=== PATIENT | female | born 1955 | race Caucasian/White ===

== ENCOUNTER 2016-10-06 06:14 | Inpatient (IN) ==
[2016-10-06 15:50] LABS: Adenovirus Not Detected (Not Detect); Bordetella Pertussis Not Detected (Not Detect); Chlamydophila pneumoniae Not Detected (Not Detect); Coronavirus 229E Not Detected (Not Detect); Coronavirus HKU1 Not Detected (Not Detect); Coronavirus NL63 Not Detected (Not Detect); Coronavirus OC43 Not Detected (Not Detect); Human Metapneumovirus Not Detected (Not Detect); Human Rhinovirus/Enterovirus Not Detected (Not Detect); Influenza A Subtype 2009 H1 Not Detected (Not Detect); Influenza A Untypeable Not Detected (Not Detect); Influenza B Not Detected (Not Detect); Mycoplasma pneumoniae Not Detected (Not Detect); Parainfluenza Virus 1 Not Detected (Not Detect); Parainfluenza Virus 2 Not Detected (Not Detect); Parainfluenza Virus 3 Not Detected (Not Detect); Parainfluenza Virus 4 Not Detected (Not Detect); Respiratory Syncytial Virus Not Detected (Not Detect)
[2016-10-07 05:27] LABS: Basophils # 0.1 K/mcL (0.0-0.2); Basophils % 0.5 %; Eosinophils # 0.2 K/mcL (0.0-0.6); Eosinophils % 1.5 %; Hematocrit 38.6 % (35.3-44.9); Hemoglobin 12.5 g/dL (11.5-15.4); Immature Granulocytes % 0.5 % (0-4); Lymphocytes # 1.7 K/mcL (0.6-4.6); Lymphocytes % 11.4 %; Mean Corpuscular HGB Conc 32.4 g/dL (31.6-35.5); Mean Corpuscular Volume 92.8 fL (83.0-100.0); Mean Platelet Volume 10.4 fL (9.4-12.4); Monocytes # 0.8 K/mcL (0.0-1.3); Monocytes % 5.6 %; Neutrophils # 12.1 K/mcL (1.6-8.9); Platelet Count 182 K/mcL (140-400); Red Blood Count 4.16 M/mcL (3.82-4.97); Red Cell Distribution Width 12.7 % (11.5-14.5); Segmented Neutrophils % 80.5 %
[2016-10-07 05:46] LABS: Alanine Aminotransferase 110 Units/L (0-55); Albumin/Globulin Ratio 0.9 (1.1-2.2); Alkaline Phosphatase 74 Units/L (38-126); Aspartate Amino Transferase 49 Units/L (5-34); BUN/Creatinine Ratio 11 (6-26); Bilirubin,Total 1.3 mg/dL (0.2-1.2); Blood Urea Nitrogen 8 mg/dL (7-20); Carbon Dioxide 20 mEq/L (19-29); Chloride 109 mEq/L (98-109); Chol/HDL Ratio 5.8 (0-4.9); Cholesterol 220 mg/dL (< 200); Globulin 3.4 g/dL (2.4-3.5); Glucose 135 mg/dL (70-99); HDL Cholesterol 38 mg/dL (40-59); LDL Cholesterol,Calculated 152 mg/dL (0-99); Magnesium 1.8 mg/dL (1.6-2.6); Osmolality,Calculated 284 (280-300); Phosphorous 2.3 mg/dL (2.3-4.7); Sodium 137 mEq/L (136-145); Total Protein 6.4 g/dL (6.0-8.3); Triglycerides 148 mg/dL (< 150); eGFR For African Americans > 60 (> 60); eGFR For Non-African Americans > 60 (> 60)
[2016-10-08 06:53] LABS: Basophils # 0.1 K/mcL (0.0-0.2); Basophils % 0.8 %; Eosinophils # 0.4 K/mcL (0.0-0.6); Eosinophils % 5.5 %; Hematocrit 35.5 % (35.3-44.9); Hemoglobin 11.9 g/dL (11.5-15.4); Immature Granulocytes % 1.3 % (0-4); Lymphocytes # 1.5 K/mcL (0.6-4.6); Lymphocytes % 19.3 %; Mean Corpuscular HGB Conc 33.5 g/dL (31.6-35.5); Mean Corpuscular Hemoglobin 30.6 pg (28.0-33.3); Mean Corpuscular Volume 91.3 fL (83.0-100.0); Mean Platelet Volume 10.8 fL (9.4-12.4); Monocytes # 0.4 K/mcL (0.0-1.3); Monocytes % 5.8 %; Neutrophils # 5.1 K/mcL (1.6-8.9); Platelet Count 187 K/mcL (140-400); Red Blood Count 3.89 M/mcL (3.82-4.97); Red Cell Distribution Width 12.7 % (11.5-14.5); Segmented Neutrophils % 67.3 %
[2016-10-08 07:12] LABS: Albumin 2.7 g/dL (3.5-5.0); Albumin/Globulin Ratio 0.7 (1.1-2.2); Bilirubin,Direct 0.3 mg/dL (0.0-0.5); Bilirubin,Indirect 0.2 mg/dL (0.0-1.2); Bilirubin,Total 0.5 mg/dL (0.2-1.2); Globulin 3.9 g/dL (2.4-3.5); Total Protein 6.6 g/dL (6.0-8.3)
[2016-10-08 08:15] VITALS: BP 144/89
== END 2016-10-08 11:18 | disposition home or self-care (01) | DRG 871 ==
LOC: 2NENU
PROVIDERS: ADMIT Internal Medicine; ATTEND Internal Medicine

== ENCOUNTER 2021-01-06 20:44 | Observation (INO) ==
[2021-01-07] MEDS ORDERED: D5% in Water 1,000 ML IVC PRN (02:01)
[2021-01-07] MEDS ORDERED: Perflutren Lipid Microsphere 1.3 ML in 0.9 % Sodium Chloride 8.7 ML IVP PRN (02:01)
[2021-01-07] MEDS ORDERED: Dextrose Gel 15 GM/37.5 ML TUBE PO PRN ×2 (02:01)
[2021-01-07] MEDS ORDERED: *HR* Dextrose 50 % in Water (Vial) 50 ML VIAL IVP PRN (02:01)
[2021-01-07] MEDS ORDERED: Ondansetron 4 MG/2 ML VIAL IVP PRN (02:04)
[2021-01-07] MEDS ORDERED: Naloxone 0.4 MG/ML INJ IVP PRN (02:04)
[2021-01-07] MEDS ORDERED: ALPRAZolam 0.25 MG TABLET PO PRN (02:09)
[2021-01-07] MEDS ORDERED: Morphine Sulfate 2 MG/ML SYRINGE IVP ONE (02:13)
[2021-01-07] MEDS ORDERED: Nitroglycerin 0.4 MG TAB.SUBL SL PRN (02:13)
[2021-01-07 02:57] LABS: Hematocrit 40.1 % (35.3-44.9); Hemoglobin 13.1 g/dL (11.5-15.4); Mean Corpuscular HGB Conc 32.7 g/dL (31.6-35.5); Mean Corpuscular Hemoglobin 30.1 pg (28.0-33.3); Mean Corpuscular Volume 92.2 fL (83.0-100.0); Mean Platelet Volume 10.6 fL (9.4-12.4); Platelet Count 209 K/mcL (140-400); Red Blood Count 4.35 M/mcL (3.82-4.97); Red Cell Distribution Width 11.7 % (11.5-14.5); White Blood Count 8.5 K/mcL (4.3-11.1)
[2021-01-07 03:11] LABS: Chol/HDL Ratio 6.6 (0-4.9); Magnesium 1.9 mg/dL (1.6-2.6)
[2021-01-07 03:12] LABS: BUN/Creatinine Ratio 15 (6-26); Blood Urea Nitrogen 13 mg/dL (8-23); Calcium 9.2 mg/dL (8.6-10.3); Carbon Dioxide 26 mEq/L (23-29); Chloride 104 mEq/L (98-107); Ethanol < 10 mg/dL (Less than 10); Glucose 126 mg/dL (70-105); Osmolality,Calculated 286 (280-300); Potassium 3.6 mEq/L (3.5-5.1); Sodium 137 mEq/L (136-145); Troponin I < 0.03 ng/mL (< 0.04); eGFR For African Americans > 60 (> 60); eGFR For Non-African Americans > 60 (> 60)
[2021-01-07 03:23] LABS: Thyroid Stimulating Hormone 4.528 mcIU/mL (0.340-5.600)
[2021-01-07 04:43] LABS: Estimated Average Glucose 154 mg/dl
[2021-01-07 05:13] LABS: Folate 16.7 ng/mL (3.0-16.0)
[2021-01-07] MEDS: *HR* Heparin 5,000 UNIT/ML VIAL SQ SCH ×3 (05:19→20:49)
[2021-01-07] MEDS ORDERED: Regadenoson 0.4 MG/5 ML SYRINGE IVP ONE (05:58)
[2021-01-07] MEDS ORDERED: Insulin LISPRO 300 UNITS/3 ML VIAL SUBQ SCH (06:00)
[2021-01-07] MEDS: Aspirin Enteric Coated 81 MG Tablet PO SCH (08:38)
[2021-01-07] MEDS: PARoxetine 10 MG TABLET PO SCH (08:38)
[2021-01-07] MEDS: Insulin LISPRO 300 UNITS/3 ML VIAL SUBQ SCH ×2 (11:28→17:06)
[2021-01-08] MEDS: *HR* Heparin 5,000 UNIT/ML VIAL SQ SCH (05:08)
[2021-01-08 06:58] LABS: Hematocrit 41.1 % (35.3-44.9); Hemoglobin 13.7 g/dL (11.5-15.4); Mean Corpuscular HGB Conc 33.3 g/dL (31.6-35.5); Mean Corpuscular Hemoglobin 30.5 pg (28.0-33.3); Mean Corpuscular Volume 91.5 fL (83.0-100.0); Mean Platelet Volume 10.4 fL (9.4-12.4); Platelet Count 200 K/mcL (140-400); Red Blood Count 4.49 M/mcL (3.82-4.97); Red Cell Distribution Width 11.7 % (11.5-14.5); White Blood Count 6.1 K/mcL (4.3-11.1)
[2021-01-08 06:59] VITALS: BP 133/83
[2021-01-08] MEDS ORDERED: lisinopriL 10 MG TABLET PO SCH (09:00)
[2021-01-08] MEDS ORDERED: Metoprolol XL (24 HR) Succ 50 MG TAB.ER.24H PO SCH (09:00)
[2021-01-08] MEDS: Aspirin Enteric Coated 81 MG Tablet PO SCH (09:27)
[2021-01-08] MEDS: Insulin LISPRO 300 UNITS/3 ML VIAL SUBQ SCH ×2 (09:27→11:44)
[2021-01-08] MEDS: PARoxetine 10 MG TABLET PO SCH (09:28)
== END 2021-01-08 11:48 | disposition home or self-care (01) ==
LOC: 3BNU → SUATTDRO 01-07 00:03
PROVIDERS: ADMIT Internal Medicine; ATTEND Nurse Practitioner